=== PATIENT | male | born 1955 | race Caucasian/White ===

== ENCOUNTER 2018-02-21 21:08 | Emergency (ER) | payer BC, MEDICARE ==
[~2018-02-21] VITALS: Ht 172.7 cm; Wt 96.9 kg
[2018-02-21] MEDS ORDERED: methylPREDNISolone sod succ 125mg/2ml vial IV ONE (23:00)
[2018-02-21] MEDS ORDERED: ipratropium/albuterol 3ml nebule NEB ONE (23:00)
[2018-02-21] MEDS ORDERED: PREG150C PO (23:03)
[2018-02-21] MEDS ORDERED: FURO-150 PO (23:03)
[2018-02-21] MEDS ORDERED: METO1TAB25 PO (23:03)
[2018-02-21] MEDS ORDERED: METF500T PO (23:03)
[2018-02-21] MEDS ORDERED: TAMS0.4C32 PO (23:03)
[2018-02-21] MEDS ORDERED: OMEP40CA37 PO (23:03)
[2018-02-21] MEDS ORDERED: ISOS30TA9 PO (23:03)
[2018-02-21] MEDS ORDERED: LISI-600 PO (23:03)
[2018-02-21] MEDS ORDERED: GLIM4TAB79 PO (23:03)
[2018-02-21] MEDS ORDERED: ALLO100T PO (23:03)
[2018-02-21] MEDS ORDERED: GLIP5TAB13 PO (23:03)
[2018-02-21] MEDS ORDERED: NITR0.4T51 SL (23:03)
[2018-02-21] MEDS ORDERED: MYCO250C46 PO (23:03)
[2018-02-21] MEDS ORDERED: HYDR-3965 PO (23:03)
[2018-02-21] MEDS ORDERED: ATOR40TA PO (23:03)
[2018-02-21] MEDS ORDERED: ASPI-1264 PO (23:03)
[2018-02-21] MEDS ORDERED: ALB0.5UD IH ×2 (23:04→23:50)
[2018-02-21 23:16] LABS: BASOPHILS # (AUTO) 0.1 X10'3 (0-0.2); BASOPHILS % (AUTO) 0.6 % (0-1); EOSINOPHILS % (AUTO) 0.5 % (0-6); HEMATOCRIT 37.6 % (42.0-52.0); HEMOGLOBIN 12.8 g/dl (14.0-17.9); LYMPHOCYTES # (AUTO) 1.7 X10'3 (1.1-4.8); MEAN CORPUSCULAR HEMOGLOBIN 28.4 PG (27.0-31.0); MEAN CORPUSCULAR VOLUME 83.8 FL (78-98); MEAN PLATELET VOLUME 7.7 FL (7.4-10.4); MONOCYTES # (AUTO) 0.9 X10'3 (0-0.9); NEUTROPHILS # (AUTO) 7.3 X10'3 (1.8-7.7); NEUTROPHILS % (AUTO) 72.9 % (42-75); PLATELET COUNT 293 X10'3 (140-440); RED BLOOD COUNT 4.48 X10'6 (4.70-6.10); RED CELL DISTRIBUTION WIDTH 15.4 % (11.5-14.5); WHITE BLOOD COUNT 10.1 X10'3 (4.5-11.0)
[2018-02-21 23:28] LABS: D-DIMER 0.41 MG/L FEU (0-0.50)
[2018-02-21 23:30] LABS: ALANINE AMINOTRANSFERASE 27 U/L (12-78); ALBUMIN 3.4 G/DL (3.4-5.0); ALBUMIN/GLOBULIN RATIO 0.8 (1.1-1.5); ALKALINE PHOSPHATASE 72 IU/L (46-116); ANION GAP 11 (8-16); ASPARTATE AMINO TRANSFERASE 15 U/L (10-37); BILIRUBIN,TOTAL 0.9 MG/DL (0.1-1.0); BLOOD UREA NITROGEN 17 MG/DL (7-18); BUN/CREATININE RATIO 14.7 (5.4-32.0); CHLORIDE 97 MMOL/L (99-107); CREATININE 1.16 MG/DL (0.60-1.10); GLUCOSE 301 MG/DL (70-104); POTASSIUM 4.5 MMOL/L (3.5-5.1); SODIUM 134 MMOL/L (135-145); TOTAL CARBON DIOXIDE 25.8 MMOL/L (24-32); TOTAL PROTEIN 7.7 G/DL (6.4-8.2); eGFR 64 ML/MIN
[2018-02-21 23:37] LABS: MAGNESIUM 1.4 MG/DL (1.5-2.4)
[2018-02-21] MEDS ORDERED: LEVO500T2 PO (23:50)
[2018-02-21] MEDS ORDERED: PRED20TA PO (23:50)
[2018-02-21] MEDS ORDERED: levoFLOXACIN 250mg tablet PO ONE (23:55)
[2018-02-21 23:59] VITALS: BP 117/66
== END 2018-02-22 00:05 | disposition home or self-care (01) ==
LOC: ER 21:09
DX: J32.9 Chronic sinusitis, unspecified (principal); J40 Bronchitis, not specified as acute or chronic; I25.10 Atherosclerotic heart disease of native coronary artery without angina pectoris; I50.9 Heart failure, unspecified; I25.2 Old myocardial infarction; J44.9 Chronic obstructive pulmonary disease, unspecified; E11.9 Type 2 diabetes mellitus without complications; Z95.1 Presence of aortocoronary bypass graft; Z60.2 Problems related to living alone; Z79.82 Long term (current) use of aspirin; Z79.899 Other long term (current) drug therapy; Z79.84 Long term (current) use of oral hypoglycemic drugs
CPT/HCPCS: 36415; 71045; 80053; 83735; 83880; 84484; 85025; 85379; 93005; 94640; 94760; 96374; 99285; J2930